=== PATIENT | male | born 2000 | race Caucasian/White ===

== ENCOUNTER → 2020-11-08 14:49 | Outpatient (CLI) | payer OTHER, SELFPAY ==
[2020-11-08] MEDS: COVID-19 VACC, Ad26(JANSSEN)/PF 0.5 ML IM (15:01)
== END ==
PROVIDERS: Visit Provider Internal Medicine
DX: Z23 Encounter for immunization (principal)
CPT/HCPCS: 0031A; 91303

== ENCOUNTER → 2023-08-12 10:08 | Outpatient (CLI) | payer OTHER, SELFPAY ==
--- NOTE | 2023-08-12 10:32 | DI.CT.S_ITS ---
PROCEDURE: CT UE LT WO CON INDICATIONS: Pain in left shoulder TECHNIQUE: Noncontrast 0.75 mm thick sections acquired from the acromioclavicular joint to the inferior scapula, with coronal and sagittal reformatting. COMPARISON: [facility], CR, XR SHOULDER 2+ VIEWS LEFT, 08/08/2023, 8:21. FINDINGS: Image quality: Excellent. 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 No acute shoulder fracture or dislocation. No suspicious bony lesions. The visualized left upper to mid ribs are intact. Soft tissues: There is no abnormal soft tissue calcifications. No significant shoulder joint effusion or calcified intra-articular loose bodies. No gross full-thickness rotator cuff tendon rupture. No significant rotator cuff muscle atrophy is noted on sagittal images. IMPRESSION: 1. 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 No shoulder fracture or dislocation. No suspicious bony lesions. 2. No full-thickness rotator cuff tendon rupture or muscle atrophy. No abnormal soft tissue calcifications. No significant joint effusion or calcified intra-articular loose bodies. Dictated by: Capo Hdz M.D. on 08/12/2023 at 15:56 Approved by: Capo Hdz M.D. on 08/12/2023 at 15:59
== END ==
PROVIDERS: Referring Provider Physician Assistant Medical; Visit Provider Physician Assistant Medical
DX: M25.512 Pain in left shoulder (principal); M89.8X1 Other specified disorders of bone, shoulder
CPT/HCPCS: 73200